=== PATIENT | male | born 1955 | race Caucasian/White ===

== ENCOUNTER 2024-11-29 10:45 | Outpatient (CLI) | payer MEDICARE, BC, SELFPAY ==
--- NOTE | ~2024-11-29 | MR_ITS ---
EXAMINATION: MR brain/brain stem wo con DATE: 11/29/2024 11:29 INDICATION: Mild cognitive impairment TECHNIQUE: Magnetic resonance imaging (MRI) of the brain and brainstem was performed without intraven ous contrast. COMPARISON: None. FINDINGS: No restricted diffusion is identified to suggest acute cerebral infarction. No abnormal signal intensity is identified on gradient echo imaging to suggest acute or subacute intr acranial hemorrhage. Scattered areas of nonspecific increased T2 weighted signal intensity within the cerebral white matte r predominantly involving the deep and periventricular white matter and within the klever. No intraparenchymal signal abnormality is seen on other pulse sequences. The ventricles are symmetric and normal in size. No abnormal extra-axial fluid collections. Flow voids are seen within the cerebral arteries on the T2-weighted sequences consistent with their e xpected patency. Visualized orbits and soft tissues are unremarkable. No abnormal signal intensity is identified withi n the overlying cranium. No abnormal signal intensity is identified within the mastoid air cells or the paranasal sinuses. IMPRESSION: No acute cerebral infarction. No acute or subacute hemorrhage. Scattered areas of nonspecific increased T2 weighted signal intensity, which are most consistent with demyelination. Reviewed, dictated and finalized at location A. ITAL RECEPTIONIST IMPRESSION: No acute cerebral infarction. No acute or subacute hemorrhage. Scattered areas of nonspecific increased T2 weighted signal intensity, which ar e most consistent with demyelination.
== END 2024-11-29 10:46 | disposition home or self-care (01) ==
DX: G31.84 Mild cognitive impairment of uncertain or unknown etiology (principal); R90.82 White matter disease, unspecified
CPT/HCPCS: 70551

== ENCOUNTER 2025-01-26 10:31 | Outpatient (CLI) | payer BC, MEDICARE, SELFPAY ==
--- NOTE | ~2025-01-26 | XR_ITS ---
[id number] Ordering provider: Soren Gu, [place] History: . Eval of rib cage pain/injury . Comparison: FINDINGS: BONES: No acute rib fracture. MEDIASTINUM: The cardiac silhouette is not enlarged. LUNGS: No effusions or infiltrates. No pneumothorax. SOFT TISSUES: Normal. IMPRESSION: No acute osseous abnormality of the bilateral ribs. Reviewed, dictated and finalized at location A.
== END 2025-01-26 10:32 | disposition home or self-care (01) ==
LOC: MICIMG 10:37
PROVIDERS: PCP Chiropractor Rehabilitation; Visit Provider Chiropractor Rehabilitation
DX: S22.39XB Fracture of one rib, unspecified side, initial encounter for open fracture (principal); X58.XXXA Exposure to other specified factors, initial encounter
CPT/HCPCS: 71110

== ENCOUNTER 2025-08-13 10:06 | Outpatient (CLI) | payer MEDICARE, SELFPAY ==
--- OUTSIDE RECORDS SUMMARY | 2025-08-13 11:06 | XMS_ITS | Clinical Summary ---
Author Organization [facility] Address [address] [place] [address] Care Team Providers Care Veterinary Milk Specialist Name Role Phone Esa Peterson MD Primary Care Provider [phone] Source Comments [facility],non-owned Affiliates and Associated Physician Practices is amultiple site organization consisting of ambulatory clinics and hospital sitesin [place], [place], [place] and [place]. This disclosure is being madepursuant to the Care Everywhere program and may not contain all information available regarding this patient. Last updated 18.[facility] Allergies Active Allergy Reactions Criticality Noted Date Comments Adhesive Sensitivity Other 09/14/2016 Erythema, Blistered skin Latex Rash Medium 08/12/2014 Nickel Rash Medium 04/27/2016 Medications * Be aware that medications may not be up to date on this document. Alwaysverify current medications with the patient. dilTIAZem coated beads 24hr (DILTIAZEM CD) 240 MG capsule Take 1 (one) capsule by mouth once daily Active fluticasone propionate (FLONASE) 50 MCG/ACT nasal spray [place] 2 (two) sprays into the nose once daily Active montelukast (SINGULAIR) 10 MG tablet Take 1 (one) tablet by mouth once daily 0 Active Multiple Vitamin (MULTI-VITAMIN S) TABS Active naproxen sodium (ALEVE) 220 MG tablet Take 1 (one) tablet by mouth as needed Active pantoprazole EC (PROTONIX) 40 MG tablet Take 1 (one) tablet by mouth once daily 1 Active rosuvastatin (CRESTOR) 20 MG tablet Take 1 (one) tablet by mouth once daily 1 Active tamsulosin (FLOMAX) 0.4 MG capsule Take 1 (one) capsule by mouth once daily 0 Active testosterone cypionate (DEPO-TESTOSTE CELINE) 200 MG/ML injection Inject 1 mL into muscle every 30 days 0 Active dulaglutide (TRULICITY) 1.5 MG/0.5ML injection Inject 1.5 (one and one-half) mg subcutaneously every 7 days (once a week) Active ibuprofen (Motrin) 800 MG tablet Take 1 (one) tablet by mouth 3 times daily Start 2 days prior to procedure, hold day of procedure, take 5 days post procedure 21 tablet 5 Active Additional Information Patient not taking.Reason: Patient adjusted, Reported on 07/01/2025 phenazopyridin e (Pyridium) 100 MG tablet Take 1 (one) tablet by mouth 2 times daily Start 2 days prior to procedure, hold day of procedure, take 5 days post procedure 14 tablet 5 Active solifenacin (Vesicare) 5 MG tablet Take 1 (one) tablet by mouth 2 times daily Start taking 2 days before procedure;hold day of procedure, then resume for 5 days. 14 tablet 5 Active ibuprofen (Motrin) 800 MG tablet Take 1 (one) tablet by mouth 3 times daily Start 2 days prior to procedure, hold day of procedure, take 5 days post procedure 21 tablet 5 Active Additional Information Patient not taking.Reason: Patient adjusted, Reported on 07/01/2025 phenazopyridin e (Pyridium) 100 MG tablet Take 1 (one) tablet by mouth 2 times daily Start 2 days prior to procedure, hold day of procedure, take 5 days post procedure 14 tablet 5 Active pantoprazole EC (Protonix) 40 MG tablet Take 1 (one) tablet by mouth once daily for 7 doses Start 2 days prior to procedure, hold day of procedure, take 5 days post procedure 7 tablet 5 Active solifenacin (Vesicare) 5 MG tablet Take 1 (one) tablet by mouth 2 times daily Start taking 2 days before procedure;hold day of procedure, then resume for 5 days. 14 tablet 5 Active Farxiga 10 MG tablet Take 1 (one) tablet by mouth every morning Active dutasteride (Avodart) 0.5 MG capsule Take 1 (one) capsule by mouth once daily Active mirabegron ER 24hr (Myrbetriq) 25 MG tablet Take 1 (one) tablet by mouth once daily 5 Active silodosin (Rapaflo) 8 MG capsule Take 1 (one) capsule by mouth daily with breakfast Active Mounjaro 2.5 MG/0.5ML injection ADMINISTER 2.5 MG UNDER THE SKIN 1 TIME A WEEK Active aspirin (Aspirin) 81 MG chew tablet Take 1 (one) tablet by mouth once daily (chew and swallow) Active Active Problems Problem Noted Date Diagnosed Date Benign prostatic hyperplasia with urinary freque ncy 06/10/2019 Type 2 diabetes mellitus wit hout complication, without long-term current use of insulin 09/27/2017 Coronary artery disease invo lving [place] coronary artery of [place] heart without angina pectoris 09/02/2015 Testicular hypofunction 03/17/2014 Overview (06/23/2021): Overview: Alatorre's esophagus 12/05/2013 Overview (06/23/2021): Overview: P2B5-cux due 11/2014 ROBBY MITCHELL MD Essential hypertension 08/22/2007 Overview (06/23/2021): Overview: ESA PETERSON MD Encounters Date Type Department Care Team Description 07/01/2025 10:54 AM CDT - 07/01/2025 6:37 PM CDT Hospital Encounter [facility] [address] [place] [id number] Jax Gunderson MD [facility] Discharge Disposition: Home or Self Care 07/01/2025 Travel 06/23/2025 Orders Only [facility] [address] [place] [address] Aliyah Castillo RN 06/19/2025 Travel from Last 3 Months Family History Medical History Relation Name Comments Cancer Father Cancer Sister Cancer - Breast Sister Allergy (Severe) Neg Hx CVA Neg Hx Cancer - Skin, Melanoma Neg Hx Cancer - Skin, Non Melanoma Neg Hx Eczema Neg Hx Hemophilia Neg Hx Psoriasis Neg Hx Rashes/Skin Problems Neg Hx Relation Name Status Comments Father Sister Social History Tobacco Use Types Packs/Day Years Used Date Smoking Tobacco: Never Smokeless Tobacco: Never Alcohol Use Standard Drinks/Week Comments Yes 7 (1 standard drink = 0.6 oz pur e alcohol) baileys in morning coffee AUDIT-C Answer Date Recorded Q1: How often do you have a drink containing alcohol? 4 or more times a week 07/01/2025 Q2: How many drinks containi ng alcohol do you have on a typical day when you are drinking? 1 or 2 Q3: How often do you have si x or more drinks on one occasion? 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 Not on file Not on file Last Filed Vital Signs Vital Sign Reading Time Taken Comments Blood Pressure 155/84 07/01/2025 6:24 PM CDT Pulse 65 07/01/2025 6:24 PM CDT Temperature 37.2 C (98.9 F) 07/01/2025 4:45 PM CDT Respiratory Rate 14 07/01/2025 6:24 PM CDT Oxygen Saturation 94% 07/01/2025 6:24 PM CDT Inhaled Oxygen Concentration 21% 01/12/2025 9 :45 AM CDT Weight 80.6 kg (177 lb 11.2 oz) 025 11:47 AM CDT Height 175.3 cm (5' 9) 07/01/2025 11:4 7 AM CDT Body Mass Index 26.24 07/01/2025 11:47 AM CDT Plan of Treatment Upcoming Encounters Date Type Department Care Team (Late st Contact Info) Description 10/29/2025 9:00 AM LEADERSHIP DEVELOPMENT INSTRUCTOR Office Visit [facility] [address] [place] [phone] Jax Gunderson MD [address] [place] [address] Health Maintenance Due Date Last Done Comments COLOGUARD (AGES 45-75) - COLON CA SCREENING 1954 COLON MONITORING 1954 COLONOSCOPY - COLON CA SCREENING 1954 CT COLONOGRAPHY - COLON CA SCREENING 1954 Colorectal Cancer Screening 1954 FIT - COLON CA SCREENING 1954 FLEX SIG - COLON CA SCREENING 1954 MEDICARE AWV 12 MONTHS 1954 HEPATITIS C SCREENING 04/01/1972 DTAP/TDAP/TD VACCINES (1 - Tdap) 1973 PNEUMOCOCCAL VACCINE 50+ (1 of 2 - PCV) 1973 ZOSTER VACCINE (1 of 2) 2004 Respiratory Syncytial Virus (RSV) Vaccine Pt: or over 60 yrs (1 - Risk 60-74 years 1-dose series) 2014 DIABETES-FOOT EXAM WITH MONOFILAMENT 06/23/2021 DIABETES-HGB A1C 06/23/2021 DIABETES RETINOPATHY SCREENING 08/20/2022 08/20/2020, 10/03/2018, 10/05/2016 DEPRESSION SCREENING 10/15/2024 DIABETES - URINE PROTEIN SCREENING 10/15/2024 COVID-19 VACCINE ( season) 2025 08/29/2022, 07/19/2021, 10/27/2020, Additional history exists INFLUENZA VACCINE (#1) 2025 , 07/18/2019, 08/02/2018, Additional history exists DIABETES-SERUM CREATININE 07/01/2026 07/01/2025, HEPATITIS B VACCINE Aged Out No longe r eligible based on patient's age to complete this topic HIB VACCINE Aged Out No longer eligi ble based on patient's age to complete this topic HPV VACCINE Aged Out No longer eligi ble based on patient's age to complete this topic MENINGOCOCCAL (Group B) VACCINE SHARED DECISION-MAKING Aged Out No longer eligible based on patient's age to complete this topic MENINGOCOCCAL GROUPS A/C/Y/W VACCINE Aged Out No longer eligible based on patient's age to complete this topic Medical Devices Implanted Type Area Job Hand Device Identifier Shelf Expiration Date Model / Serial / Lot Sphr Embl Ylw Embsp 100-300um Trisacryl Implanted:Qty: 1 on 07/01/2025 by Jax Gunderson MD at [facility] Left: Prostate [employer] 10/31/2027 [id number] / / [id number] Procedures Procedure Name Priority Date/Time Associated Diagnosis Comments URINALYSIS REFLEX TO MICROSCOPIC NO CULTURE STAT 07/01/2025 6:36 PM CDT Benign prostatic hyperplasia with urinary frequency IR EMBO TUMOR OR ORGAN ISCHEMIA Routine 07/01/2025 4:44 PM CDT Benign prostatic hyperplasia with urinary frequency Testicular hypofunction GLUCOSE - POINT OF CARE Routine 07/01/2025 11:55 AM CDT CBC W AUTO DIFFERENTIAL STAT 07/01/2025 11:38 AM CDT Benign prostatic hyperplasia with urinary frequency BASIC METABOLIC PANEL (CALCIUM TOTAL) STAT 07/01/2025 11:38 AM CDT Benign prostatic hyperplasia with urinary frequency PT-INR STAT 07/01/2025 11:38 AM CDT Benign prostatic hyperplasia with urinary frequency Vascular disorders of male genital organs from Last 3 Months Results * (ABNORMAL) URINALYSIS REFLEX TO MICROSCOPIC NO CULTURE (07/01/2025 6:36 PM CDT) Color UA Yellow Yellow, Straw 07/01/2025 7:53 PM CDT [facility] Clarity UA Clear Clear 07/01/2025 7:53 PM CDT [facility] Glucose UA 4+(A) Normal 07/01/2025 7:53 PM CDT [facility] Bilirubin UA Negative Negative 07/01/2025 7:53 PM CDT [facility] Ketone UA Negative Negative 07/01/2025 7:53 PM CDT [facility] Specific [place] UA >1.050(H) 1.005 - 1.030 07/01/2025 7:53 PM CDT [facility] Comment:Specific gravity res ults confirmed by refractometer. Blood UA 1+(A) Negative 07/01/2025 7:53 PM CDT [facility] pH UA 5.5 5.0 - 8.0 07/01/2025 7:53 PM CDT [facility] Protein UA Negative Negative 07/01/2025 7:53 PM CDT [facility] Urobilinogen UA Normal Normal mg/dL 025 7:53 PM T [facility] Nitrite UA Negative Negative 07/01/2025 7:53 PM CDT [facility] Leukocyte Esterase UA Negative Negative 07/01/2025 7:53 PM CDT [facility] RBC UA 0-2 0 - 5 # /hpf 07/01/2025 7:53 PM CDT [facility] WBC UA 0-5 0 - 5 # /hpf 07/01/2025 7:53 PM T [facility] Bacteria UA None Seen None Seen 07/01/2025 7:53 PM T [facility] Squamous Epithelial Cells 0-2 0 - 5 /hpf 07/01/2025 7:53 PM T [facility] Urine URINE SPECIMEN OBTAINED BY CLEAN CATCH PROCEDURE / Unknown Collection / Unknown 07/01/2025 6:36 PM CDT 07/01/2025 6:42 PM CDT Edith Upton CLINICAL PSYCHOLOGIST PRIVATE PRACTICE-MECHANICAL ENGINEERING PROFESSOR LAB - URINALY SIS ORDERABLES Final Result [facility] [address] [place] [id number], [facility] [phone] * IR Embo Tumor or organ Ischemia (07/01/2025 4:44 PM CDT) Anatomical Region Laterality Modality Pelvis X-Ray Angiograph y 07/01/2025 5:09 PM CDT Impressions 07/09/2025 6:53 PM CDT Impression: Successful bilateral prostate artery embolization, as described above. I, Dr. Gunderson, was present and performed/supervised the entire procedure. Moderate sedation on this patient was ordered by me, administered intravenously in my presence, and monitored by the procedure nurse as an independent trained observer who was present throughout the procedure. The following parameters were monitored: oxygen saturation, heart rate, blood pressure, and response to care. Intra-service sedation start time was 1450 and end time was 1625 during which I was present. Total physician intra-service sedation time was 95 minutes. For details on pre moderate sedation and post moderate sedation patient evaluation, please review the evaluation forms in [facility]. For details on monitored clinical parameters during the intra-service sedation time, please review the procedure nurse documentation in [facility]. Report dictated by Gadiel Edwards M.D. (Interventional head resident) 07/01/2025 5:16 PM > Dictated by Reference Test Clerk I, Jax Gunderson MD have personally reviewed and interpreted this examination/study. > Interpreting Provider: Jax Gunderson MD on 07/09/2025 6:53 PM Narrative 07/09/2025 6:53 PM CDT History: 70 year old male presenting for Image Guided Prostate Artery Embolization and related interventions Operators: 1.Dr. Gunderson, Attending Physician 2.Dr. Edwards, Resident Physician Anesthesia: 1.Local anesthesia - 10 mL of 1% lidocaine 2.Intravenous conscious sedation - Versed 1 mg and Fentanyl 50 mcg Procedure: 1.Ultrasound-guided access of the right common femoral artery. 2.Lower abdominal and pelvic angiogram. 3.Selective catheterization of the left common iliac artery (1st order) followed by the left internal iliac artery (2nd order) and angiogram. 4.Selective catheterization of the anterior division of the left internal iliac artery (3rd order) and angiogram. 5.Selective catheterization of the left prostate artery (beyond 3rd order) and angiogram. 6.Embolization of the left prostate artery with 100-300 micron Embospheres under fluoroscopic guidance. 7.Post-embolization angiogram of the left prostate artery. 8.Selective catheterization of the right common iliac artery (1st order) followed by the right internal iliac artery (2nd order) and angiogram. 9.Selective catheterization of the anterior division of the right internal iliac artery (3rd order) and angiogram. 10.Selective catheterization of the right prostate artery (beyond 3rd order) and angiogram. 11.Embolization of the right prostate artery with 100-300 micron Embospheres under fluoroscopic guidance. 12.Post-embolization angiogram of the right prostate artery. 13.Sheath angiogram of the right common femoral artery. 14.Hemostasis with Mynx closure device. Start time: 1452 End time: 1625 Sedation initiated time: 1450 Fluoroscopic time: 46.5 minutes Contrast: 130 mL of Isovue-300 Procedure in detail: The procedure, risks, and possible complications and were explained to the patient in detail, and an informed consent was obtained. The patient was brought to the angiography suite and placed supine on the procedure table. The right groin was prepped and draped in the usual sterile fashion. A electrical instrument maker film of pelvis was obtained, which was unremarkable. The patient received intravenous Versed and Fentanyl for conscious sedation. A qualified radiology nurse monitored the patient s vital signs throughout the procedure. Limited ultrasound of the right common femoral artery demonstrated a patent vessel. The take off of the profunda was identified. A [place]keefe scale image was documented. The right common femoral artery was accessed using a micro-puncture needle. The needle entry was documented. Following a series of exchanges, a 5-Lao vascular sheath was placed. The left common iliac artery followed by the left internal iliac artery was catheterized with PPC catheter and angiogram was obtained, which demonstrated early branching from the anterior division of the internal iliac artery with the prostatic artery arising just distal to a vesicular branch. The anterior division of the left internal iliac artery was selectively catheterized with a coaxially advanced microcatheter and angiogram was obtained, which demonstrated a dominant prostatic artery branch supplying the prostate. The left prostate artery was selectively catheterized with the microcatheter and angiogram was obtained, which showed parenchymal blush of the prostate. Embolization of left prostate artery was then performed using 100-300 micron Embospheres under fluoroscopic guidance until satisfactory stasis was achieved. Post-embolization angiogram of the left prostate artery confirmed satisfactory stasis. The right common iliac artery followed by the right internal iliac artery was catheterized with a Sos catheter followed by a kumpe catheter and angiogram was obtained, which demonstrated acute angulation of the internal iliac artery from the common iliac artery. The anterior division of the right internal iliac artery was selectively catheterized with a kumpe catheter and angiogram showed a prostatic artery branch supplying the prostate. Additionally, a short segment dissection flap was noted in the inferior gluteal artery without flow limitation. The right prostate artery was selectively catheterized with the microcatheter and angiogram was obtained, which showed parenchymal blush of the prostate. Embolization of right prostate artery was then performed using 100-300 micron Embospheres under fluoroscopic guidance until satisfactory stasis was achieved. Post-embolization angiogram of the right prostate artery confirmed satisfactory stasis. A sheath angiogram of the right common femoral artery was unremarkable with femoral access away from the profunda femoris. Hemostasis was achieved with Minx closure device. A sterile dressing was applied. The patient tolerated the procedure well and was transferred to the holding area in stable condition. There were no immediate complications associated with the procedure. Procedure Note Jax Gunderson MD - 07/09/2025 History: 70 year old male presenting for Image Guided Prostate Artery Embolization and related interventions Operators: 1.Dr. Gunderson, Attending Physician 2.Dr. Edwards, Resident Physician Anesthesia: 1.Local anesthesia - 10 mL of 1% lidocaine 2.Intravenous conscious sedation - Versed 1 mg and Fentanyl 50 mcg Procedure: 1.Ultrasound-guided access of the right common femoral artery. 2.Lower abdominal and pelvic angiogram. 3.Selective catheterization of the left common iliac artery (1st order) followed by the left internal iliac artery (2nd order) and angiogram. 4.Selective catheterization of the anterior division of the leftinternal iliac artery (3rd order) and angiogram. 5.Selective catheterization of the left prostate artery (beyond 3rdorder) and angiogram. 6.Embolization of the left prostate artery with 100-300 micronEmbospheres under fluoroscopic guidance. 7.Post-embolization angiogram of the left prostate artery. 8.Selective catheterization of the right common iliac artery (1st order) followed by the right internal iliac artery (2nd order) and angiogram. 9.Selective catheterization of the anterior division of the rightinternal iliac artery (3rd order) and angiogram. 10.Selective catheterization of the right prostate artery (beyond 3rd order) and angiogram. 11.Embolization of the right prostate artery with 100-300 micron Embospheres under fluoroscopic guidance. 12.Post-embolization angiogram of the right prostate artery. 13.Sheath angiogram of the right common femoral artery. 14.Hemostasis with Mynx closure device. Start time: 1452 End time: 1625 Sedation initiated time: 1450 Fluoroscopic time: 46.5 minutes Contrast: 130 mL of Isovue-300 Procedure in detail: The procedure, risks, and possible complications and were explained tothe patient in detail, and an informed consent was obtained. The patient was brought to the angiography suite and placed supine on the proceduretable. The right groin was prepped and draped in the usual sterile fashion. A electrical instrument maker film of pelvis was obtained, which was unremarkable. The patient received intravenous Versed and Fentanyl for conscious sedation. A qualified radiology nurse monitored the patient s vital signs throughout the procedure. Limited ultrasound of the right common femoral artery demonstrated apatent vessel. The take off of the profunda was identified. A [place]keefe scale imagewas documented. The right common femoral artery was accessed using a micro-puncture needle. The needle entry was documented. Following aseries of exchanges, a 5-Lao vascular sheath was placed. The left common iliac artery followed by the left internal iliac arterywas catheterized with PPC catheter and angiogram was obtained, which demonstrated early branching from the anterior division of the internal iliac artery with the prostatic artery arising just distal to avesicular branch. The anterior division of the left internal iliac artery was selectively catheterized with a coaxially advanced microcatheter and angiogram was obtained, which demonstrated a dominant prostatic artery branch supplying the prostate. The left prostate artery was selectively catheterized with the microcatheter and angiogram was obtained, which showed parenchymal blushof the prostate. Embolization of left prostate artery was then performedusing 100-300 micron Embospheres under fluoroscopic guidance untilsatisfactory stasis was achieved. Post-embolization angiogram of the left prostate artery confirmed satisfactory stasis. The right common iliac artery followed by the right internal iliacartery was catheterized with a Sos catheter followed by a kumpe catheter and angiogram was obtained, which demonstrated acute angulation of theinternal iliac artery from the common iliac artery. The anterior division of the right internal iliac artery was selectively catheterized with a kumpe catheter and angiogram showed a prostatic artery branch supplying the prostate. Additionally, a short segment dissection flap was noted inthe inferior gluteal artery without flow limitation. The right prostate artery was selectively catheterized with the microcatheter and angiogram was obtained, which showed parenchymal blushof the prostate. Embolization of right prostate artery was then performed using 100-300 micron Embospheres under fluoroscopic guidance until satisfactory stasis was achieved. Post-embolization angiogram of theright prostate artery confirmed satisfactory stasis. A sheath angiogram of the right common femoral artery was unremarkablewith femoral access away from the profunda femoris. Hemostasis was achievedwith Minx closure device. A sterile dressing was applied. The patient tolerated the procedure well and was transferred to theholding area in stable condition. There were no immediate complicationsassociated with the procedure. Impression: Successful bilateral prostate artery embolization, asdescribed above. I, Dr. Gunderson, was present and performed/supervised the entireprocedure. Moderate sedation on this patient was ordered by me, administered intravenously in my presence, and monitored by the procedure nurse as an independent trained observer who was present throughout the procedure.The following parameters were monitored: oxygen saturation, heart rate,blood pressure, and response to care. Intra-service sedation start time [id number] and end time was 1625 during which I was present. Total physician intra-service sedation time was 95 minutes. For details on pre moderate sedation and post moderate sedation patient evaluation, please reviewthe evaluation forms in [facility]. For details on monitored clinical parameters during the intra-service sedation time, please review the procedurenurse documentation in [facility]. Report dictated by Gadiel Edwards M.D. (Interventional head resident) 07/01/2025 5:16 PM > Dictated by Reference Test Clerk I, Jax Gunderson MD have personally reviewed and interpreted this examination/study. > Interpreting Provider: Jax Gunderson MD on 07/09/2025 6:53 PM us Jax Gunderson MD IR ORDERABLES Final Result * (ABNORMAL) GLUCOSE - POINT OF CARE (07/01/2025 11:55 AM CDT) Glucose WB/POC 153(H) 70 - 99 mg/dL 07/01/2025 11:56 AM CDT [facility] Specimen Type Venous 07/01/2025 11:56 AM CDT [facility] Blood BLOOD SPECIMEN / Unknown 07/01/2025 11:55 AM CDT 07/01/2025 11:56 AM CDT us Jax Gunderson MD LAB - POINT OF CARE ORDERABLE S Final Result [facility] [address] [place] [address] [phone] * PT-INR (07/01/2025 11:38 AM CDT) [facility] PT 12.9 12.1 - 14.8 Seconds 07/01/2025 12:13 PM [facility] INR 1.0 See Comment 07/01/2025 12:13 PM [facility] Comment:The suggested therap eutic range for standard coumadin (warfarin) therapy is an INR of 2.0-3.0. For high-risk patients (Mechanical Mitral Valve Prosthesis, etc.), the suggested prophylactic therapeutic range is an INR of 2.5-3.5. Blood BLOOD SPECIMEN / Unknown Venipuncture / Unknown 07/01/2025 11:38 AM CDT 07/01/2025 11:41 AM CDT Edith Upton CLINICAL PSYCHOLOGIST PRIVATE PRACTICE-MECHANICAL ENGINEERING PROFESSOR LAB - COAGULA TION ORDERABLES Final Result [address] [address], [facility] [phone] * (ABNORMAL) CBC W AUTO DIFFERENTIAL (07/01/2025 11:38 AM CDT) [facility] WBC 7.8 4.0 - 10.7 x10E9/L 07/01/2025 11:57 AM [facility] RBC Count 5.93(H) 4.30 - 5.80 x10E12/L 07/01/2025 11:57 AM [facility] Hemoglobin 19.1(H) 13.3 - 17.5 g/dL 07/01/2025 11:57 AM [facility] Hematocrit 53.7(H) 38.7 - 51.1 % 07/01/2025 11:57 AM [facility] MCV 90.6 80.0 - 98.0 fL 07/01/2025 11:57 AM [facility] MCH 32.2 26.7 - 33.6 pg 07/01/2025 11:57 AM [facility] MCHC 35.6 31.7 - 36.3 g/dL 07/01/2025 11:57 AM [facility] RDW-CV 13.2 11.3 - 14.8 % 07/01/2025 11:57 AM [facility] Platelet Count 197 150 - 420 x10E9/L 07/01/2025 11:57 AM [facility] MPV 10.4 7.8 - 11.4 fL 07/01/2025 11:57 AM [facility] Neutrophil % 70.4 41.0 - 74.0 % 07/01/2025 11:57 AM [facility] Lymphocyte % 20.4 17.0 - 47.0 % 07/01/2025 11:57 AM [facility] Monocyte % 6.5 3.0 - 11.0 % 07/01/2025 11:57 AM [facility] Eosinophil % 1.8 0.0 - 7.0 % 07/01/2025 11:57 AM [facility] Basophil % 0.4 0.0 - 1.6 % 07/01/2025 11:57 AM [facility] Immature Granulocytes % 0.5 0.0 - 1.0 % 07/01/2025 11:57 AM [facility] Neutrophil Absolute 5.50 1.60 - 7.50 x10E9/L 07/01/2025 11:57 AM [facility] Lymphocyte Absolute 1.59 1.00 - 4.40 x10E9/L 07/01/2025 11:57 AM [facility] Monocyte Absolute 0.51 0.15 - 1.00 x10E9/L 07/01/2025 11:57 AM [facility] Eosinophil Absolute 0.14 0.00 - 0.60 x10E9/L 07/01/2025 11:57 AM [facility] Basophil Absolute 0.03 0.00 - 0.13 x10E9/L 07/01/2025 11:57 AM [facility] Blood BLOOD SPECIMEN / Unknown Venipuncture / Unknown 07/01/2025 11:38 AM CDT 07/01/2025 11:48 AM CDT Edith Upton CLINICAL PSYCHOLOGIST PRIVATE PRACTICE-MECHANICAL ENGINEERING PROFESSOR LAB - HEMATOL OGY ORDERABLES Final Result [facility] [address] [place] [address], [facility] [phone] * (ABNORMAL) BASIC METABOLIC PANEL (CALCIUM TOTAL) (07/01/2025 11:38 AM CDT) BUN 15 7 - 26 mg/dL 07/01/2025 12:17 PM [facility] Creatinine 0.98 0.71 - 1.16 mg/dL 07/01/2025 12:17 PM [facility] Sodium 140 136 - 145 mmol/L 07/01/2025 12:17 PM [facility] Potassium 3.5 3.5 - 4.5 mmol/L 07/01/2025 12:17 PM [facility] Chloride 105 98 - 107 mmol/L 07/01/2025 12:17 PM [facility] CO2 25 22 - 29 mmol/L 07/01/2025 12:17 PM [facility] Glucose 153(H) 70 - 99 mg/dL 07/01/2025 12:17 PM [facility] Calcium 9.1 8.4 - 10.2 mg/dL 07/01/2025 12:17 PM [facility] Anion Gap 10 6 - 16 07/01/2025 12:17 PM [facility] BUN/Creatinine Ratio 15 7 - 23 07/01/2025 12:17 PM [facility] Osmolality Calculated 294 275 - 295 mOsm/kg 07/01/2025 12:17 PM [facility] eGFR by CKD-EPI 82(L) >=90 mL/min/1.7 3 m2 07/01/2025 12:17 PM [facility] Comment:Estimated Glomerular Filtration Rate (eGFR) calculated using the CKD-EPI Creatinine Equation (2020), per the National Kidney Foundation and [place] [employer] Nephrology recommendations. Blood BLOOD SPECIMEN / Unknown Venipuncture / Unknown 07/01/2025 11:38 AM CDT 07/01/2025 11:47 AM CDT Edith Upton CLINICAL PSYCHOLOGIST PRIVATE PRACTICE-MECHANICAL ENGINEERING PROFESSOR LAB - FARMWORKER EGG PRODUCING FARM RY ORDERABLES Final Result [facility] [address] [place] [address], [place] [phone] from Last 3 Months Insurance MEDICARE [id number] Care Teams Veterinary Milk Specialist Relationship Specialty Start Date End Date Esa Peterson MD PCP - General 11/26/15
--- OUTSIDE RECORDS SUMMARY | 2025-08-13 11:06 | XMS_ITS | Clinical Summary ---
Author Organization [facility] Address [address] [place] [address] Care Team Providers Care Service Counter Cashier Name Role Phone Esa Peterson MD Primary Care Provider [phone] Allergies No known active allergies Medications No known medications Active Problems Problem Noted Date Diagnosed Date Erectile dysfunction due to diseases classified elsewhere 07/18/2021 Overview (07/18/2021): Added automatically from request for surgery [id number] Benign prostatic hyperplasia with urinary obstru ction 07/18/2021 Overview (08/16/2021): Added automatically from request for surgery [id number] Social History Tobacco Use Types Packs/Day Years Used Date Smoking Tobacco: Never Assessed Sex and Gender Information Value Date Recorded Sex Assigned at Not on file Legal Sex Male 8:25 AM CDT Gender Identity Not on file Sexual Orientation Straight 03/25/2021 11 :05 AM CDT Obstetrics History Last Filed Vital Signs Vital Sign Reading Time Taken Comments Blood Pressure 108/73 06/22/2021 1:20 PM CDT Pulse 82 06/22/2021 1:20 PM CDT Temperature 36.1 C (96.9 F) 06/22/2021 1:20 PM CDT Respiratory Rate - - Oxygen Saturation - - Inhaled Oxygen Concentration - - Weight 82.6 kg (182 lb 1.6 oz) 07/23/2021 9:50 A M CDT Height 175.3 cm (5' 9) 07/23/2021 9:50 AM CDT Body Mass Index 26.89 07/23/2021 9:50 AM CDT Plan of Treatment Not on file Medical Devices Implanted Type Area Import Manager Device Identifier Shelf Expiration Date Model / Serial / Lot Stent Stent N/A: Heart Description:X2 Insurance [employer] OPEN ACCESS MEDICARE Care Teams Service Counter Cashier Relationship Specialty Start Date End Date Esa Peterson MD [address] [place] [address] STEVEN VACA [phone] PCP - General Internal Medicine 03/25/21
[2025-08-13 19:03] LABS: Hematocrit 54.0 % (42.0-52.0); Hemoglobin 18.6 g/dL (14.0-18.0); Immature Granulocyte Percent A 0.2 % (0-0.5); Lymphocytes Absolute Auto 1.59 K/mm3 (0.9-3.2); Mean Corpuscular HGB Conc 34.4 g/dl (32-36); Mean Corpuscular Hemoglobin 31.7 pg (26-34); Mean Corpuscular Volume 92.0 fl (80-100); Nucleated Red Blood Cells Absolute Auto 0.000 K/mm3 (0.0-0.012); Nucleated Red Blood Cells Perc 0.0 % (0.0-0.2); Platelet Count Result 192 k/mm3 (150-375); Red Blood Count 5.87 M/mm3 (4.6-6.20); White Blood Count 6.2 K/mm3 (4.5-10.0)
[2025-08-13 19:15] LABS: Alanine Aminotransferase 44 U/L (6-50); Albumin Level 4.8 g/dL (3.5-5.1); Alkaline Phosphatase 83 U/L (38-126); Anion Gap 13 mmol/L (4-12); Aspartate Amino Transferase 61 U/L (17-59); Bilirubin,Total 0.9 mg/dL (0.2-1.3); Blood Urea Nitrogen 18 mg/dL (9-20); Calcium 8.9 mg/dL (8.4-10.2); Carbon Dioxide 22 mmol/L (22-30); Chloride 104 mmol/L (98-107); Cholesterol 176 mg/dL (0-200); Estimated Glomerular Filt Rate > 60; Glucose 151 mg/dL (65-110); HDL Direct 41 mg/dL; Potassium 3.5 mmol/L (3.4-5.0); Sodium 139 mmol/L (137-145); Total Protein 7.9 g/dL (6.3-8.2); Triglycerides 330 mg/dL (<150)
[2025-08-13 19:16] LABS: Hemoglobin A1C 6.5 % (<5.7)
[2025-08-13 19:37] LABS: MALB Creatinine Ratio 36.0 mg/g (0-30)
[2025-08-13 20:09] LABS: Prostate Specific Antigen 1.6 ng/mL (< OR = 4.0); Thyroid Stimulating Hormone 2.330 uIU/mL (0.465-4.680)
[2025-08-13 20:45] LABS: Vitamin B12 944.0 pg/mL (239-931)
[2025-08-19 02:07] LABS: Free Testosterone (Direct) 3.1 pg/mL (6.6-18.1)
== END 2025-08-13 10:07 | disposition home or self-care (01) ==
LOC: ANHGOSHLAB 10:08
DX: E78.5 Hyperlipidemia, unspecified (principal); E11.9 Type 2 diabetes mellitus without complications; E55.9 Vitamin D deficiency, unspecified; N40.0 Benign prostatic hyperplasia without lower urinary tract symptoms; R53.83 Other fatigue
CPT/HCPCS: 36415; 80053; 80061; 82043; 82172; 82306; 82607; 82746; 83036; 84153; 84402; 84403; 84443; 85025

== ENCOUNTER 2025-10-14 08:56 | Outpatient (CLI) | payer MEDICARE, BC, SELFPAY ==
--- OUTSIDE RECORDS SUMMARY | 2025-10-14 09:05 | XMS_ITS | Clinical Summary ---
Author Organization [facility] Address [address] [place] [address] Care Team Providers Care Filling Technician Name Role Phone Carlos Howard MD Primary Care Provider [phone] Allergies No known active allergies Medications No known medications Active Problems Problem Noted Date Diagnosed Date Erectile dysfunction due to diseases classified elsewhere 07/18/2021 Overview (07/18/2021): Added automatically from request for surgery [id number] Benign prostatic hyperplasia with urinary obstru ction 07/18/2021 Overview (08/16/2021): Added automatically from request for surgery [id number] Social History Tobacco Use Types Packs/Day Years Used Date Smoking Tobacco: Never Assessed Sex and Gender Information Value Date Recorded Sex Assigned at Not on file Legal Sex Male 8:25 AM CDT Gender Identity Not on file Sexual Orientation Straight 03/25/2021 11 :05 AM CDT Last Filed Vital Signs Vital Sign Reading [...] on file Medical Devices Implanted Type Area Tear Down Worker Device Identifier Shelf Expiration Date Model / Serial / Lot Stent Stent N/A: Heart Description:X2 [place] [address] Care Teams Filling Technician Relationship Specialty Start Date End Date Carlos Howard MD [address] [place], [place] [id number] PCP - General Internal Medicine 09/25/25
== END 2025-10-14 08:57 | disposition home or self-care (01) ==
LOC: ANHAUDASC 08:57
PROVIDERS: PCP Internal Medicine; Visit Provider Internal Medicine
DX: H90.3 Sensorineural hearing loss, bilateral (principal)
CPT/HCPCS: 92557